=== PATIENT | male | born 1995 | race Two or more races ===

== ENCOUNTER 2016-11-15 11:21 | Emergency (ER) | payer OTHER ==
[2016-11-15] MEDS ORDERED: IBUPROFEN 800 MG TABLET ONE (11:39)
--- NOTE | 2016-11-15 12:16 | RAD ---
Exam: 4 view left knee COMPARISON: 10/23/2014 INDICATION: Soccer injury from last night. FINDINGS: AP, lateral and bilateral AP oblique views of left knee were obtained. There is no significant joint effusion. Alignment is normal. No fracture is identified. Joint spaces are maintained. IMPRESSION: No acute osseous abnormality in the left knee.
== END 2016-11-15 12:22 | disposition home or self-care (01) ==
LOC: ED 11:21
DX: S89.92XA Unspecified injury of left lower leg, initial encounter (principal); X50.0XXA Overexertion from strenuous movement or load, initial encounter; Y93.66 Activity, soccer; Y92.322 Soccer field as the place of occurrence of the external cause
CPT/HCPCS: 73564; 99283 ×2; A9270